=== PATIENT | male | born 1945 | race Caucasian/White ===

== ENCOUNTER → 2017-04-05 | Outpatient (CLI) | payer OTHER ==
[~2017-04-05] MED LIST: ALLOPURINOL 10100 M1 PO; AZOR 10-20 MG1 EACH PO; BP MED; CELEBREX 200 M200 MG PO; CENTRUM COMPLE1 EACH PO; CENTRUM SILVER1 EAC2 PO; COLCRYS0.6 MG PO; DEPO-TESTO100 MG/1 M IM; FISH OIL 1,001000 M2 PO; MEDROLDOSEPACK PO; MOBIC15 MG PO; PERCOCET 5-3251 EACH PO; VITAMIN D1000 UNI1 PO
== END ==
LOC: CAT 09:37 → EDSTATUS 11:57 → CAT 12:01
DX: J01.00 Acute maxillary sinusitis, unspecified (principal); J02.9 Acute pharyngitis, unspecified

== ENCOUNTER → 2017-09-18 | Outpatient (CLI) | payer OTHER ==
[~2017-09-18] MED LIST changes: +ACYCLOVIR 400400 MG PO; +ARIMIDEX PO; +DHEA50 M1 PO; +DHEA50 MG PO; +DICLOFENAC SOD50 M1 PO; +HYDROCODON-ACE1 EAC8 PO; +HYDROCODONE-AP1 EAC6 PO; +IBUPROFEN 800800 M1 PO; +PROBIOTIC1 EAC1 PO; +SYNTHROID50 MCG PO; +VALIUM5 MG PO; +VALSARTAN160 MG PO; +WELLBUTRIN 100100 MG PO; +ZANAFLEX4 MG PO
== END ==
LOC: ULTRA 09-14 10:50 → EDSTATUS 09-14 10:52 → ULTRA 09:59
DX: E04.2 Nontoxic multinodular goiter (principal); Z87.891 Personal history of nicotine dependence

== ENCOUNTER → 2017-12-04 | Outpatient (CLI) | payer OTHER ==
[~2017-12-04] VITALS: Ht 180.3 cm; Wt 111.1 kg
[~2017-12-04] MED LIST changes: -DHEA50 MG PO; -DICLOFENAC SOD50 M1 PO; -HYDROCODONE-AP1 EAC6 PO; -ZANAFLEX4 MG PO
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
[2017-12-04 12:36] VITALS: BP 144/85
== END ==
LOC: PAIN 07:16
DX: M50.10 Cervical disc disorder with radiculopathy, unspecified cervical region (principal); I10 Essential (primary) hypertension; M19.90 Unspecified osteoarthritis, unspecified site; E03.9 Hypothyroidism, unspecified; M10.9 Gout, unspecified

== ENCOUNTER → 2017-12-31 | Outpatient (CLI) | payer OTHER ==
[~2017-12-31] MED LIST changes: +DHEA50 MG PO
[2017-12-31 11:20] VITALS: BP 142/78
[2017-12-31 12:00] VITALS: BP 144/75
== END ==
LOC: OPONC 00:49
DX: D58.2 Other hemoglobinopathies (principal)
CPT/HCPCS: 95100

== ENCOUNTER → 2018-01-15 | Outpatient (CLI) | payer OTHER ==
[~2018-01-15] VITALS: Ht 180.3 cm; Wt 114.8 kg
[~2018-01-15] MED LIST changes: +DICLOFENAC SOD50 M1 PO; +HYDROCODONE-AP1 EAC6 PO
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
[2018-01-15 09:05] VITALS: BP 141/80
== END ==
LOC: PAIN 06:13
DX: M47.27 Other spondylosis with radiculopathy, lumbosacral region (principal); Z88.2 Allergy status to sulfonamides

== ENCOUNTER → 2018-02-06 | Outpatient (CLI) | payer OTHER ==
[~2018-02-06] VITALS: Ht 180.3 cm; Wt 112.5 kg
[~2018-02-06] MED LIST changes: +ZANAFLEX4 MG PO
--- NOTE | ~2018-02-06 | HPC ---
[facility] [address] [place] [address] PAIN MANAGEMENT CONSULTATION Name: MYLES STRATTON Room #: [facility] [id number] Admission: 02/06/18 Attend Phys: Jung Cardoza DO Discharge: Date of : 47 Report #: [id number] THIS REPORT FOR: //name// CC: Jung Fletcher MD DATE OF SERVICE: 02/06/2018 REFERRING PHYSICIAN: Wu Fletcher MD CHIEF COMPLAINT: Low back pain, right lower extremity pain with paresthesias. HISTORY OF PRESENT ILLNESS: As you know, the patient is a 72-year-old male who returns today in followup visit with right low back pain, right lower extremity pain with paresthesias. The patient states pain began spontaneously after kneeling down at the bedside last while on a cruise. The patient states he felt instantaneous pain radiating down the right leg and weakness with inability to dorsiflex his right foot. He states that his pain is a level of 10/10. He sought evaluation and was subsequently referred to our clinic to discuss treatment options. The patient's MRI from 06/22/2017, showed severe spinal stenosis at the L2-L3 level with a central paracentral disk change causing central canal stenosis that reportedly was advised surgical options would be necessary. The patient apparently improved spontaneously and was doing well throughout July, August, September, October and November, he began to experience some sensation in December, but was not intolerable, pain became intolerable during this recent cruise and now is experiencing right-sided pain that is radicular in origin. He is referred back to our clinic to discuss options for treatment. ALLERGIES: SULFA. CURRENT MEDICATIONS: Tizanidine 4 mg 3 times a day p.r.n., hydrocodone 5/325 one tab every 6 hours p.r.n. for pain, diclofenac sodium 50 mg once a day, lactobacillus 1 tab per day, DHEA 50 mg once a day, cholecalciferol 1000 per day, levothyroxine 50 mcg per day, valsartan 160 mg per day, multivitamin 1 tab per day, allopurinol 100 mg once a day, and testosterone 200 mg intramuscular weekly. SOCIAL HISTORY: The patient denies tobacco, IV or illicit drug use, admits to 2 alcohol beverages per week. He is retired, retired years ago. He is accompanied by his who is present in room today. IMAGING: No new imaging available. PQRS: The patient has osteoarthritis, no rheumatoid [place] [address] PAIN MANAGEMENT CONSULTATION Name: MYLES STRATTON Room #: REG [facility]#: [id number] Admission: 02/06/18 Attend Phys: Jung Cardoza DO Discharge: Date of : 47 Report #: [id number] pain level of 10/10. He is not a fall risk, has not had a fall in the last 3 months. He is not on blood thinners. He is treated for hypertension. He is not on chronic opioids. He has a low risk of opioid abuse. His functional assessment tool is 70/70, complete interference of daily activities secondary to pain. PHYSICAL EXAMINATION: VITAL SIGNS: Blood pressure 131/68, pulse 85, respiratory rate 16 and unlabored, the patient is 93% on room air, height 5 feet 11 inches tall, weight 248 pounds, BMI calculated 34.6. GENERAL: Well-developed, well-nourished, well-hydrated, exogenously obese 72-year-old male, appearing his stated age, placing current pain score 10/10. HEENT: He is normocephalic and atraumatic. Pupils are equal, round, reactive to light. Extraocular muscles are intact. Sclerae are nonicteric without injection. NEUROLOGIC: Cranial nerves 2-12 are grossly intact. Speech fluent. LUNGS: Clear, no wheeze, rhonchi or rales. CARDIOVASCULAR: Regular. No appreciable gallop or rub. ABDOMEN: Soft, obese, nontender. EXTREMITIES: Show no clubbing, no cyanosis. There is 1+ nonpitting edema in right lower extremity when compared to left. MUSCULOSKELETAL: Seated straight leg raising positive right, supine straight leg raising positive right. Sundar's test negative. Modified Gaenslen's positive for axial low back pain. Gait is extremely antalgic favoring right lower extremity over left. Weightbearing on right leg causes intensification of pain of greater than 10/10. There is noted muscle weakness with hip flexion on the right when compared to left, dorsiflexion is no greater than 1/4, plantar flexion is 2+/4. There are equal and symmetrical patellar reflexes, decreased Achilles reflex on the right when compared to left. Muscle bulk and tone appears equal and symmetrical in lower extremities bilaterally. ASSESSMENT: 1. Lumbar radiculopathy. 2. Severe spinal stenosis of lumbar spine. 3. Displacement of lumbar intervertebral disk with radiculopathy. 4. Lumbosacral spondylosis with radiculopathy. PLAN: 1. The patient has returned today in followup visit with acute onset of low back pain, right lower extremity pain with numbness and tingling radiating down the leg. This in and of itself is fairly concerning, though the patient is now showing difficulty with hip flexion on the right as well as dorsiflexion of the right foot versus the left, I am very concerned about significant nerve root impingement. The findings on MRI in June 2017, precipitated a surgical evaluation where they recommended fusion and decompression. The patient's pain did subsequently improve and so he did not have to undergo procedure at that [facility] [address] [place] [address] PAIN MANAGEMENT CONSULTATION Name: CHAYITOMYLES Kun Room #: REG [facility]ENTERVeronica.#: [id number] Admission: 02/06/18 Attend Phys: Jung Cardoza DO Discharge: Date of : 46 Report #: [id number] time. I am concerned that this symptom is either related directly to this finding or progression of the findings from the June timeframe. The patient is unable to bear weight, he is unable to walk, according to his he was screaming in pain and crying over the last 4 days due to ongoing pain issues and he has been relatively disabled. The concern I have is in regards to the weakness of the muscles of the right lower extremity and thus I have recommended further more aggressive evaluation. I have contacted the emergency department at [facility], discussed the case with the emergency physician and have recommended the patient be admitted through the emergency department and have an evaluation from neurosurgery. The patient saw Dr. Brandon Saini at [facility] in June and I believe a reevaluation of the patient's case is necessary. I do feel that further imaging either in the form of CT or MRI will be necessary, the patient and I discussed possibly doing this as an outpatient, but he indicated he would not be able to lay still in an MRI system or even a CT examination system without significant sedation. We recommend more aggressive evaluation and possible sedation through the [facility] system. I have discussed the case with the ER physician over at [facility] and he is willing to see the patient acutely and begin the workup. 2. I have taken the liberty of contacting Dr. Brandon Saini's nurse practitioner in regards to the patient's case to give them an idea of why we have referred the patient over to their services at [facility], they have yet to contact our clinic, but I will discuss with the neurosurgery team, the findings and physical exam and our concerns about progressively worsening spinal stenosis. We will be available to talk to them as quickly as possible. 3. We did discuss the possibility of starting medications on the patient and providing an epidural injection here at the clinic as well as beginning workup through MRI. Given the findings and physical exam, I do not feel that outpatient treatment will be successful. I believe further evaluation through the hospital system is more appropriate. The patient was amenable and did agree with the plan of care. <ELECTRONICALLY SIGNED> By: Jung Cardoza DO 02/12/18 0817 [id number] Jung Cardoza DO /nt
[2018-02-06 08:09] VITALS: BP 131/68
== END ==
LOC: PAIN 06:50
DX: M47.27 Other spondylosis with radiculopathy, lumbosacral region (principal); Z88.2 Allergy status to sulfonamides

== ENCOUNTER → 2018-07-03 | Outpatient (CLI) | payer OTHER | LOC: MRI 11:05 | DX: M47.896 Other spondylosis, lumbar region (principal); T14.8XXA Other injury of unspecified body region, initial encounter; X58.XXXA Exposure to other specified factors, initial encounter; Y93.89 Activity, other specified; Y92.89 Other specified places as the place of occurrence of the external cause; Y99.8 Other external cause status ==

== ENCOUNTER → 2018-07-04 | Outpatient (CLI) | payer OTHER | LOC: MRI 10:27 | DX: M47.896 Other spondylosis, lumbar region (principal); M48.061 Spinal stenosis, lumbar region without neurogenic claudication ==

== ENCOUNTER → 2019-06-24 | Outpatient (CLI) | payer OTHER | LOC: ULTRA 15:02 | DX: E04.2 Nontoxic multinodular goiter (principal) ==

== ENCOUNTER → 2019-07-15 | Outpatient (CLI) | payer OTHER | LOC: ULTRA 13:31 | DX: I73.9 Peripheral vascular disease, unspecified (principal); R20.9 Unspecified disturbances of skin sensation ==

== ENCOUNTER → 2020-03-03 | Outpatient (CLI) | payer OTHER ==
[~2020-03-03] VITALS: Ht 180.3 cm; Wt 123.5 kg
[~2020-03-03] MED LIST changes: +AVAPRO 150 MG150 MG PO; +CINNAMON500 MG PO; +FISH OIL 1,0001 EAC9 PO
--- NOTE | ~2020-03-03 | HPC ---
[facility] [place] [address] PAIN MANAGEMENT CONSULTATION Name: MYLES STRATTON Room #: REG [facility]#: [id number] Admission: 03/03/20 Attend Phys: Jung Cardoza DO Discharge: Date of : 46 Report #: [id number] THIS REPORT FOR: cc: Wu Fletcher MD, Neal A. MD Johnson, James E. DO ~ CC: Jung Fletcher MD DATE OF SERVICE: 03/03/2020 REFERRING PHYSICIAN: Wu Fletcher MD CHIEF COMPLAINT: Low back pain, right buttock and posterolateral thigh pain. HISTORY OF PRESENT ILLNESS: As you know, the patient is a 74-year-old male returning in followup visit today with recurrent low back pain, right lower extremity pain with paresthesias. As you are aware, the patient has undergone a fusion at the L2-L3 level with resolution of his lumbar radicular symptoms initially. Unfortunately, his symptoms returned without inciting injury or trauma. He states that he notes most of his symptoms are exacerbated with decreased activity. His pain does improve with riding a recumbent bike. He initially began to experience pain in the posterolateral thigh and buttock area and he was evaluated for possible bursitis. He has undergone an intrabursal injection with some improvement in symptoms. He continued to experience intermittent pain that then radiated from the back to the buttock and down the posterolateral thigh and the patient was further imaged. He was advised to follow up with our clinic to review the MRI findings and discuss treatment options. He indicates that he has not had results of this provided to him. The patient reports no new injury or trauma that may have led to symptom development. He is fairly active, riding a recumbent bike on a daily basis. ALLERGIES: SULFA. CURRENT MEDICATIONS: Cinnamon Bark 500 mg once a day, omega-3 fish oil 1 tab per day, Irbesartan 150 mg once a day, lactobacillus 1 tab per day, levothyroxine 50 mcg per day, allopurinol 100 mg once a day, testosterone intramuscular weekly. SOCIAL HISTORY: The patient denies tobacco, IV or illicit drug use. Admits to 2 alcohol beverages per week. He is retired, retired years ago. He is unaccompanied at today's visit. IMAGING: MRI of the lumbar spine obtained on 02/20/2020 shows posterior instrumentation at L2-L3 with decrease in the fluid collection from previous [facility] [address] [place] [address] PAIN MANAGEMENT CONSULTATION Name: MYLES STRATTON Room #: REG [facility]#: [id number] Admission: 03/03/20 Attend Phys: Jung Cardoza DO Discharge: Date of : 47 Report #: [id number] imaging. There is an unchanged grade 1 anterolisthesis of L4 on L5, grade 1 retrolisthesis at L3-L4 with a wedge deformity at L2. There does appear to be a retrolisthesis at L3-L4 with a large right paracentral disk protrusion with caudal migration. Extruded disk material measures 0.9 x 1.3 x 2.5 cm marked facet arthropathy, moderate central canal stenosis. There is extruded disk mass effect upon the descending right L4 nerve root in the subarticular zone and lateral recess. PHYSICAL EXAMINATION: VITAL SIGNS: Blood pressure 156/89, pulse 91, respiratory rate 18 and unlabored. The patient is 91% on room air. Height 5 feet 11 inches tall, weight 272.2 pounds, BMI calculated 38.0. GENERAL: Well-developed, well-nourished, well-hydrated exogenously obese 74-year-old male. He appears stated age, placing current pain score at 0/10. HEENT: Normocephalic, atraumatic. Pupils equal, round and reactive. NEUROLOGIC: Speech is fluent. The patient deemed a good historian. LUNGS: Clear, no wheeze, rhonchi or rales. CARDIOVASCULAR: Regular. EXTREMITIES: Show no clubbing, no cyanosis, no edema. MUSCULOSKELETAL: The patient has some palpatory tenderness over the paraspinal musculature of lower lumbar spine right side specifically. There are no changes in skin color, texture over the area. There are well-healed surgical scars from previous fusion. Seated straight leg raising is negative. Supine straight leg raising is positive on the right. Sundar's test is negative. There is some palpatory tenderness over the greater trochanter consistent with right greater trochanteric bursitis. Ankle clonus is negative. Babinski is negative. Intact to light touch from L1 through S2 dermatomes. ASSESSMENT: 1. Symptomatic lumbar radiculopathy. 2. Lateral recess of the lumbar spine. 3. Central canal stenosis of lumbar spine. 4. Displacement of lumbar intervertebral disk with radiculopathy. 5. Facet arthropathy of the lumbar spine. 6. Right greater trochanteric bursitis. 7. Chronic intractable pain. PLAN: 1. Based on today's physical exam and the history, the patient provides, the description, the patient uses in regards to pain as well as the location of symptoms, likely source of the patient's pain is a lumbar radiculopathy. We have reviewed with the patient the MRI, he brought with us dated 02/20/2020. We spent over 18 minutes of time reviewing the MRI, specifically the area of the L3-L4 level consistent with the patient's pain distribution showing significant mass effect upon the right L4 nerve root. We discussed with the patient the options for treatment based on this MRI and the findings on physical exam today. [address] [address] PAIN MANAGEMENT CONSULTATION Name: CHAYITOMYLES L Room #: REG [facility]ele[facility]#: [id number] Admission: 03/03/20 Attend Phys: Jung Cardoza DO Discharge: Date of : 47 Report #: [id number] Following was discussed with the patient. We discussed physical therapy, stretching exercises, core strengthening as a treatment option. We discussed medication management with neuropathic pain medications, specifically to address neuropathic symptoms such as nortriptyline, amitriptyline, Cymbalta, Lyrica, and gabapentin. We discussed lumbar epidural injection under fluoroscopic guidance to directly address the inflammatory process that may be present at the L3-L4 level. We also discussed a spinal cord stimulator and ultimately surgical decompression. After reviewing the risks and benefits of all proposed treatment options, the patient chose to consider surgical options. 2. The patient has a Neurosurgery Group in [place], [place]. He wishes to utilize to address his surgical issues. He has sent all imaging to their facility and are awaiting the response to the findings at the L3-L4 level. He will be following up with them in regards to surgical options. I do feel that decompression of the area will improve the patient's current symptoms and improve his long-term outcome. He will follow up with his neurosurgery group as quickly as possible. 3. In regards to the patient's greater trochanteric bursitis pain, we would recommend that if his symptoms do return, which are present, they are not problematic, we would be more than willing to have the patient undergo a bursa injection under fluoroscopic guidance. He has had good benefit with previous steroid injections in the past and would be available to see him back to trial this injection option. He is also considering possible stem cell injections in [facility]. I have read the literature that does indicate that there is some efficacy for these to be utilized. The patient can look into this option. We will be certainly available to see him back to trial a bursa injection if he wishes to do so. 4. The patient was advised if he does have recurrence of pain to a level of intolerable, he can certainly return to trial an epidural injection to address lumbar radicular symptoms prior to any surgical consultation. We will make ourselves available to the patient for that if he wishes to do so. The patient is agreeable with the plan. 5. We will see the patient back in followup visit on an as needed basis. The patient is informed about the findings of his MRI after our discussion today. He will contact our clinic if he wishes to discuss further treatment options or to address interventional treatment. By: 1453 12 Jung Cardoza DO /andressa
--- NOTE | 2020-03-03 13:45 | NUR ---
Pain Clinic Assessment: 1. History of Osteoarthritis: BACK RIGHT HIP History of Rheumatoid Arthritis: Not Applicable 2. Height: ft. in. cm. Weight: lb. oz. kg. Patient's BMI: 3. Vital Signs: BP: Pulse: Resp: Temp: 02 Sat: ECG Mon: 4. Pain Intensity: 0 5. Fall Risk: Dizziness: Needs help standing or walking: Fallen in the last 3 months: Fall risk comments: 6. Patient on Blood Thinner: None 7. History of Hypertension: Y 8. Opioid Therapy greater than 6 weeks: N Opiate Contract Signed: 9. Risk Assessment Tool Provided: LOW RISK 09/12 10. Functional Assessment Tool: 11. Recreational Drug Use: Never Drug Type: Tobacco Use: Never Smoker Tobacco Type: Amount or Packs/day: How Many Years: Alcohol Use: Yes Frequency: Weekly Quant: 1-2
[2020-03-03 13:46] VITALS: BP 156/89
--- NOTE | 2020-03-03 13:47 | NUR ---
Pain Clinic Assessment: 1. History of Osteoarthritis: BACK RIGHT HIP History of Rheumatoid Arthritis: Not Applicable 2. Height: 5 ft. 11 in. 180.3 cm. Weight: 272.2 lb. oz. 123.469 kg. Patient's BMI: 38.0 3. Vital Signs: BP: 156/89 Pulse: 91 Resp: 18 Temp: 02 Sat: 91 ECG Mon: 4. Pain Intensity: 0 5. Fall Risk: Dizziness: N Needs help standing or walking: N Fallen in the last 3 months: N Fall risk comments: 6. Patient on Blood Thinner: None 7. History of Hypertension: Y 8. Opioid Therapy greater than 6 weeks: N Opiate Contract Signed: 9. Risk Assessment Tool Provided: LOW RISK 09/12 10. Functional Assessment Tool: 11. Recreational Drug Use: Never Drug Type: Tobacco Use: Never Smoker Tobacco Type: Amount or Packs/day: How Many Years: Alcohol Use: Yes Frequency: Weekly Quant: 1-2
== END ==
LOC: PAIN 06:47
PROVIDERS: ATTEND Anesthesiology Pain Medicine
DX: M51.16 Intervertebral disc disorders with radiculopathy, lumbar region (principal); M48.061 Spinal stenosis, lumbar region without neurogenic claudication; M47.26 Other spondylosis with radiculopathy, lumbar region; M71.551 Other bursitis, not elsewhere classified, right hip; G89.29 Other chronic pain; Z87.39 Personal history of other diseases of the musculoskeletal system and connective tissue; Z88.2 Allergy status to sulfonamides; Z79.899 Other long term (current) drug therapy

== ENCOUNTER → 2020-04-02 | Outpatient (CLI) | payer OTHER ==
[2020-04-02 12:50] VITALS: BP 138/71
[2020-04-02 13:18] VITALS: BP 143/69
[2020-04-02 14:26] LABS: HEMATOCRIT 55.3 % (42.0-52.0); HEMOGLOBIN 18.8 gm/dL (14.0-18.0)
--- NOTE | 2020-04-02 15:56 | NUR ---
IN FOR THERAPEUTIC PHLEBOTOMY FOR ELEVATED HGB OF 18.9. PATIENT IS PREPARING FOR SURGERY NEXT WEEK. REMOVED 1 UNIT BLOOD. TOLERATED WELL. DRANK SOME APPLE JUICE AND OBSERVED FOR 20 MINUTES. POST BP GOOD. DISMISSED IN STABLE CONDITION.
== END ==
LOC: OPONC 08:31
PROVIDERS: ATTEND Family Medicine
DX: R71.8 Other abnormality of red blood cells (principal)
CPT/HCPCS: 95100

== ENCOUNTER → 2020-10-26 | Outpatient (CLI) | payer OTHER | LOC: ULTRA 08:57 | PROVIDERS: ATTEND Family Medicine | DX: I82.412 Acute embolism and thrombosis of left femoral vein (principal); I82.432 Acute embolism and thrombosis of left popliteal vein; M79.89 Other specified soft tissue disorders; R60.0 Localized edema ==

== ENCOUNTER → 2020-11-17 | Outpatient (CLI) | payer OTHER | LOC: SJCVCIMAG 11-16 14:24 | PROVIDERS: ATTEND Family Medicine | DX: I73.9 Peripheral vascular disease, unspecified (principal); M79.661 Pain in right lower leg; M79.662 Pain in left lower leg ==

== ENCOUNTER → 2021-01-13 | Outpatient (CLI) | payer OTHER | LOC: SJCVCIMAG 10:43 | PROVIDERS: ATTEND Nuclear Medicine Nuclear Cardiology | DX: I82.412 Acute embolism and thrombosis of left femoral vein (principal); I82.432 Acute embolism and thrombosis of left popliteal vein; I82.442 Acute embolism and thrombosis of left tibial vein; Z79.899 Other long term (current) drug therapy; Z87.891 Personal history of nicotine dependence ==

== ENCOUNTER → 2021-02-03 | Outpatient (CLI) | payer OTHER | LOC: SJCVC 14:20 | PROVIDERS: ATTEND Internal Medicine Cardiovascular Disease | DX: I47.1 Supraventricular tachycardia (principal); R93.1 Abnormal findings on diagnostic imaging of heart and coronary circulation; I10 Essential (primary) hypertension; Z88.2 Allergy status to sulfonamides; Z79.899 Other long term (current) drug therapy; Z87.891 Personal history of nicotine dependence; Z82.49 Family history of ischemic heart disease and other diseases of the circulatory system ==

== ENCOUNTER → 2021-02-08 | Outpatient (CLI) | payer OTHER | LOC: SJCVCIMAG 08:49 | PROVIDERS: ATTEND Internal Medicine Cardiovascular Disease | DX: I51.7 Cardiomegaly (principal); I97.89 Other postprocedural complications and disorders of the circulatory system, not elsewhere classified; I47.1 Supraventricular tachycardia ==

== ENCOUNTER 2021-02-16 12:57 | Emergency (ER) | payer OTHER ==
[~2021-02-16] VITALS: Ht 180.3 cm; Wt 122.5 kg
--- NOTE | ~2021-02-16 | EMS ---
[facility] [address] [place] [address] EMS Patient Care Report Name: MYLES STRATTON Room #: DEP CLAUDIA Velez#: [id number] Admission: 02/16/21 Attend Phys: Discharge: 02/16/21 Date of : 47 Report #: [id number] THIS REPORT FOR: //name// Report Transmitted: 02/16/2021 19:14 EMS Care Summary [facility] MED-ACT Incident [id number] @ 02/16/2021 12:05 Incident Location [address] [place] [address] Patient MYLES STRATTON Male, 75 Years 1945 Patient Address [address] [place] [address] Patient History Hypertension (HTN),Back Surgery,Supraventricular Tachycardia (SVT), Patient Allergies Sulfa, Patient Medications Irbesartan, Allopurinol, Xarelto, Levothyroxine, Chief Complaint Palpitations Disposition Transported No Lights/[place] Reason Heart Problems/AICD Transported To [facility] Narrative INITIAL: Patient found sitting in a chair, alert. HPI: Patient reported that he rode his bike this morning, and stopped exercising at about 10:30 AM. At about 11:15, he began having palpitations and [facility] [address] [place] [address] EMS Patient Care Report Name: MYLES STRATTON Room #: DEP Rosie#: [id number] Admission: 02/16/21 Attend Phys: Discharge: 02/16/21 Date of : 47 Report #: [id number] his Apple Watch alerted him to an irregular heartbeat. He attempted vagal maneuvers about 5 times, without success. He has a history of SVT. He usually goes into SVT about once a year. He denied any chest pain, difficulty breathing, or other pain. PLAN: Vitals, history, 12 lead, assessment. Assisted patient to cot and moved to back of ambulance. Repeat 12 leads, IV. Transported non-emergency to [facility]. Patient remained stable during transport. Transferred patient to ER nurse in room 8. Initial Vitals @12:42P: 148,R: 16,BP: 118/61,Pain: 0/10,GCS: 15,SpO2: 96,Revised Trauma: 12,GA Suspected: false @12:29P: 149,R: 18,BP: 128/77,Pain: 0/10,GCS: 15,SpO2: 96,Revised Trauma: 12,GA Suspected: false @12:32P: 149,R: 18,BP: 120/80,Pain: 0/10,GCS: 15,SpO2: 96,Revised Trauma: 12,GA Suspected: false @12:18P: 151,R: 18,BP: 144/97,Pain: 0/10,GCS: 15,Temp: 98F,SpO2: 96,Revised Trauma: 12,GA Suspected: false Assessments @12:16MENTAL:Person Oriented,Time Oriented,Place Oriented,Event Oriented,SKIN:HEENT:LUNG SOUNDS:ABDOMEN:PELVIS//GI:EXTREMITIES:PULSE:Radial: 2+ Normal,NEURO: Impression Cardiac arrhythmia/dysrhythmia Procedures @12:30Saline Lock cc (18 ga) Site: Antecubital-LeftResponse: UnchangedFailed@12:33Saline Lock 5cc (18 ga) Site: Upper Arm-RightResponse: UnchangedSucceeded@12:1812-Lead ECG@12:3512-Lead ECG@12:4212-Lead ECG Timeline 12:04,Call Received 12:04,Psap Call 12:05,Dispatched 12:07,En Route 12:14,On Scene 12:15,At Patient 12:18,12-Lead ECG, 12:18,BP: 144/97 M,PULSE: 151,RR: 18 R,SPO2: 96 Ox,ETCO2: ,BG: ,PAIN: 0,GCS: 15, 12:29,BP: 128/77 M,PULSE: 149,RR: 18 R,SPO2: 96 Ox,ETCO2: ,BG: ,PAIN: 0,GCS: 15, 12:30,Saline Lock cc 18 ga Site: Antecubital-Left,Response: UnchangedFailed, [facility] [address] [place] [address] EMS Patient Care Report Name: MYLES STRATTON Kun Room #: [facility] CLAUDIA Velez#: [id number] Admission: 02/16/21 Attend Phys: Discharge: 02/16/21 Date of : 47 Report #: [id number] 12:32,BP: 120/80 M,PULSE: 149,RR: 18 R,SPO2: 96 Ox,ETCO2: ,BG: ,PAIN: 0,GCS: 15, 12:33,Depart Scene 12:33,Saline Lock 5cc 18 ga Site: Upper Arm-Right,Response: UnchangedSucceeded, 12:35,12-Lead ECG, 12:42,12-Lead ECG, 12:42,BP: 118/61 M,PULSE: 148,RR: 16 R,SPO2: 96 Ox,ETCO2: ,BG: ,PAIN: 0,GCS: 15, 12:56,At Destination 13:13,Call Closed Disclaimer v1.1 Copyright 2020 [employer] This EMS Care Summary contains data elements from the applicable legal record (which may be displayed differently). It is designed to provide pertinent information for the following purposes: continuity of care, clinical quality, and state data reporting. The complete legal record is available to ED staff and administrators of the receiving hospital in [employer] Patient Tracker. All data is provided "as is."
[2021-02-16] MEDS ORDERED: XARELTO20 MG PO (13:09)
[2021-02-16 13:36] LABS: ABSOLUTE NEUTROPHILS 3.1 thou/uL (1.4-8.2); BASOPHILS 0.8 % (0.0-2.0); EOSINOPHILS 1.9 % (0.0-3.0); HEMOGLOBIN 14.9 gm/dL (14.0-18.0); LYMPHOCYTES 30.3 % (24.0-44.0); MCH 31.5 pg (26.0-34.0); MCHC 33.9 g/dL (28.0-37.0); MONOCYTES 11.2 % (1.0-8.0); PLATELET COUNT 177 thou/uL (150-400); POLYS 55.8 % (36.0-66.0); RBC 4.74 mil/uL (4.50-6.00); RDW 14.5 % (10.5-14.5); WBC 5.5 thou/uL (4.0-11.0)
[2021-02-16 13:42] LABS: ANION GAP 8 mmol/L (7-16); BUN 17 mg/dL (7-18); CALCIUM 9.3 mg/dL (8.5-10.1); CHLORIDE 107 mmol/L (98-107); CO2 27 mmol/L (21-32); CREATININE 0.9 mg/dL (0.7-1.3); GLUCOSE 95 mg/dL (74-106); POTASSIUM 3.8 mmol/L (3.5-5.1); SODIUM 142 mmol/L (136-145)
[2021-02-16 13:50] LABS: TROPONIN-I <0.06 ng/mL (<0.06)
[2021-02-16 15:29] VITALS: BP 137/71
--- NOTE | 2021-02-16 15:33 | EKG ---
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 SAMPSON : 1945 Requested By: Rex Treviño Order Number: [id number] MD: Roberto Tirado Measurements Intervals [place] Rate: 89 P: -3 CT: 178 QRS: -27 QRSD: 87 T: 22 QT: 362 QTc: 441 Interpretive Statements Sinus rhythm Ventricular premature complex Left ventricular hypertrophy Inferior infarct, old Compared to ECG 02/16/2021 14:07:46 Ventricular premature complex(es) now present Myocardial infarct finding still present Electronically Signed On 02-16-2021 15:33:42 CDT by Roberto Tirado [email or web address] <ELECTRONICALLY SIGNED> By: Roberto Tirado MD, [facility] 02/16/21 1533 1408 1408 Roberto Tirado MD, [facility] /EPI
--- NOTE | 2021-02-16 15:33 | EKG ---
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 SAMPSON : 1945 Requested By: Geovany Connell Order Number: [id number] MD: Roberto Tirado Measurements Intervals [place] Rate: 84 P: -8 UT: 179 QRS: -29 QRSD: 84 T: 24 QT: 360 QTc: 426 Interpretive Statements Sinus rhythm Left ventricular hypertrophy Inferior infarct, old Compared to ECG 10/25/2009 07:53:34 Left ventricular hypertrophy now present Myocardial infarct finding now present Electronically Signed On 02-16-2021 15:33:38 CDT by Roberto Tirado [email or web address] <ELECTRONICALLY SIGNED> By: Roberto Tirado MD, [facility] 02/16/21 1533 1407 06 Roberto Tirado MD, [facility] /EPI
--- NOTE | 2021-02-18 07:05 | EKG ---
[place] [address] [address] [facility] [facility] [address] ELECTROCARDIOGRAM REPORT Name: MYLES STRATTON [id number] Admission: 02/16/21 Attend Phys: Discharge: 02/16/21 Date of : 47 Report #: [id number] 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1945 Requested By: Rex Treviño Order Number: [id number] MD: Roberto Tirado Measurements Intervals [place] Rate: 148 P: 185 AR: 82 QRS: -21 QRSD: 81 T: 11 QT: 281 QTc: 442 Interpretive Statements Supraventricular tachycardia LVH by voltage Inferior infarct, old Lateral leads are also involved Compared to ECG 10/25/2009 07:53:34 Left ventricular hypertrophy now present Myocardial infarct finding now present Sinus rhythm no longer present Electronically Signed On 02-18-2021 7:05:13 CDT by Roberto Tirado [email or web address] <ELECTRONICALLY SIGNED> By: Roberto Tirado MD, [facility] 02/18/21 0705 1306 [id number] Roberto Tirado MD, [facility] /EPI
== END 2021-02-16 15:29 | disposition home or self-care (01) ==
LOC: ER 12:57
PROVIDERS: Nurse Practitioner
DX: I48.3 Typical atrial flutter (principal); I10 Essential (primary) hypertension; G89.29 Other chronic pain; Z79.899 Other long term (current) drug therapy; Z88.2 Allergy status to sulfonamides

== ENCOUNTER → 2021-03-10 | Outpatient (CLI) | payer OTHER ==
[~2021-03-10] VITALS: Ht 180.3 cm; Wt 122.7 kg
[~2021-03-10] MED LIST changes: +CANDICIDAL CAP1 EACH PO; +DILTIAZEM 24HR120 M1 PO; +XARELTO20 MG PO
--- NOTE | ~2021-03-10 | P ---
[facility] [place] [address] PROCEDURE REPORT Name: MYLES STRATTON Room #: [facility]#: [id number] Admission: 03/10/21 Attend Phys: Jake Jerome MD Discharge: Date of : 47 Report #: [id number] THIS REPORT FOR: cc: Wu Fletcher MD, Neal A. MD Couchonnal, Luis F. MD ~ DOC #: [id number] Jake Jerome MD DATE OF SERVICE: 03/10/2021 SVT ABLATION PREOPERATIVE DIAGNOSIS: Supraventricular tachycardia. POSTOPERATIVE DIAGNOSIS: Typical atrioventricular asaf reentrant tachycardia. PROCEDURES PERFORMED: 1. SVT ablation -- CPT code 44861. 2. EP with left atrial pacing and recordings, CPT code 18535. 3. Programmed stimulation pacing after IV drug infusion, CPT code 53160. 4. 3D mapping, CPT code 25042. HISTORY: The patient is a 75-year-old with recurrent supraventricular tachycardia despite medication therapy. He has had a recent DVT in the left vein. DESCRIPTION OF PROCEDURE: The patient was brought to the EP laboratory in fasting and sedated state, prepped and draped in a sterile fashion. He had undergone informed consent. We discussed the details of the procedure including the risks, which include but not limited to bleeding, vascular damage, stroke, NM, cardiac perforation as well as damage to the nuiqsut conduction system requiring permanent pacemaker. He understood these risks and is willing to proceed. As such, I obtained, all four access to the right femoral vein as he has had a recent DVT in the left femoral vein. I placed 8, 2, 6 and a 7-[place] Ze[place] short sheath using the modified Seldinger technique. Under fluoroscopy, I placed 3 quadripolar catheters at the HRA, His and RV positions respectively and a decapolar catheter into the coronary sinus for left atrial pacing and recording. At baseline, the patient was in sinus rhythm, sinus cycle length of 860 milliseconds, VA interval 180 milliseconds, QRS duration 80 milliseconds, QT interval 390 milliseconds, AH interval 76 milliseconds, HV interval 45 milliseconds. Atrial burst pacing was performed and AV block was noted at 360 milliseconds. Single atrial extrastimuli were delivered and there was AH jump at 300 milliseconds to a [address] cycle length consistent with slow pathway physiology. Atrial ERP was noted at 250 milliseconds at a [address] cycle length. Ventricular pacing was performed and VA block was noted at 390 milliseconds and ventricular ERP was noted at 220 [facility] [address] [place] [address] PROCEDURE REPORT Name: MYLES STRATTON Room #: [facility]#: [id number] Admission: 03/10/21 Attend Phys: Jake Jerome MD Discharge: Date of : 47 Report #: [id number] milliseconds at a [address] cycle length, with activation that was both midline and decremental. With a single atrial extrastimuli, I demonstrated nonsustained SVT that appeared to be consistent with typical AV asaf reentrant tachycardia. Isoproterenol infusion was initiated at 1 mcg per minute and then SVT was easily inducible at a tachycardia cycle length of 350 milliseconds, septal VA time of 70 milliseconds and entrainment demonstrated a VAHV response consistent with typical AV asaf reentrant tachycardia. THREE-DIMENSIONAL MAPPING AND ABLATION: Next, a 4-mm ablation catheter was placed into the right atrium via an SR0 sheath. A 3D geometry of the atrium was created with specific emphasis of the His bundle region and the slow pathway region. Ablation was performed at 50 anguiano and 55 degrees. A total of 5 ablation lesions were delivered. Lesions 2, 3 and 4 had nice slow junctionals. There was never any compromise to the AV asaf function. POST-ABLATION TESTING: Post-ablation, the patient was started back on isoproterenol, AV block was noted at 360 milliseconds. AV asaf ERP was noted at 220 milliseconds to [address] cycle length. VA block was noted at 290 milliseconds. Aggressive atrial and ventricular pacing maneuvers were performed and there was no inducible SVT and there were no AV asaf echoes. Post-ablation, I continued testing as I turned off the isoproterenol and no arrhythmias were inducible. Post-ablation, the patient was in sinus rhythm, sinus cycle length of 680 milliseconds, VA interval 170 milliseconds, QRS 75 milliseconds, QT interval 320 milliseconds, AH interval 90 milliseconds, HV interval 42 milliseconds. As such, catheters and sheaths were pulled. Hemostasis was obtained. The patient awoke neurologically and hemodynamically intact. CONCLUSIONS: 1. Successful ablation of typical AVNRT. 2. Normal SA asaf function. 3. Normal AV asaf function. 4. Normal His-Purkinje function. 5. No other inducible arrhythmias on or off isoproterenol. Jake Jerome MD Cb/KENDRICK/ESDRAS [facility] [address] [place] [address] PROCEDURE REPORT Name: MYLES STRATTON Room #: ZEYAD Velez#: [id number] Admission: 03/10/21 Attend Phys: Jake Jerome MD Discharge: Date of : 47 Report #: [id number] By: [id number] Jake Jerome MD /nt
[2021-03-10 07:35] VITALS: BP 128/68
[2021-03-10 07:49] LABS: ABSOLUTE NEUTROPHILS 2.9 thou/uL (1.4-8.2); BASOPHILS 0.6 % (0.0-2.0); EOSINOPHILS 2.8 % (0.0-3.0); HEMATOCRIT 43.1 % (42.0-52.0); HEMOGLOBIN 14.5 gm/dL (14.0-18.0); MCH 31.7 pg (26.0-34.0); MCHC 33.7 g/dL (28.0-37.0); MCV 94.3 fL (80.0-100.0); PLATELET COUNT 165 thou/uL (150-400); POLYS 52.6 % (36.0-66.0); RBC 4.57 mil/uL (4.50-6.00); RDW 13.9 % (10.5-14.5); WBC 5.4 thou/uL (4.0-11.0)
[2021-03-10 07:52] LABS: POTASSIUM 3.9 mmol/L (3.5-5.1)
[2021-03-10 08:00] LABS: ALBUMIN 3.4 g/dL (3.4-5.0); TOTAL BILIRUBIN 0.6 mg/dL (0.2-1.0); TOTAL PROTEIN 7.2 g/dL (6.4-8.2)
[2021-03-10 08:37] LABS: APTT 26.7 Seconds (24.5-32.8); PROTIME 10.4 Seconds (9.3-11.4)
== END | disposition home or self-care (01) ==
LOC: CATH 06:19
PROVIDERS: ATTEND Internal Medicine Cardiovascular Disease
DX: I47.1 Supraventricular tachycardia (principal); I48.92 Unspecified atrial flutter; R00.2 Palpitations; I10 Essential (primary) hypertension; M19.90 Unspecified osteoarthritis, unspecified site; E07.9 Disorder of thyroid, unspecified; F32.9 Major depressive disorder, single episode, unspecified; E66.09 Other obesity due to excess calories; Z98.890 Other specified postprocedural states; Z79.899 Other long term (current) drug therapy; Z85.820 Personal history of malignant melanoma of skin; Z79.01 Long term (current) use of anticoagulants; Z86.718 Personal history of other venous thrombosis and embolism; Z88.2 Allergy status to sulfonamides
CPT/HCPCS: 62110; 62900; 70005

== ENCOUNTER → 2021-06-09 | Outpatient (CLI) | payer OTHER | LOC: SJCVC 14:00 | PROVIDERS: ATTEND Internal Medicine Cardiovascular Disease | DX: I47.1 Supraventricular tachycardia (principal); I73.9 Peripheral vascular disease, unspecified; R93.1 Abnormal findings on diagnostic imaging of heart and coronary circulation; I82.509 Chronic embolism and thrombosis of unspecified deep veins of unspecified lower extremity; Z88.2 Allergy status to sulfonamides; Z79.899 Other long term (current) drug therapy; Z72.89 Other problems related to lifestyle; Z87.891 Personal history of nicotine dependence ==

== ENCOUNTER → 2021-08-15 | Outpatient (CLI) | payer OTHER | LOC: SJCVC 11:12 | PROVIDERS: ATTEND Internal Medicine Cardiovascular Disease | DX: I47.1 Supraventricular tachycardia (principal); R93.1 Abnormal findings on diagnostic imaging of heart and coronary circulation; I10 Essential (primary) hypertension; E78.00 Pure hypercholesterolemia, unspecified; I25.10 Atherosclerotic heart disease of native coronary artery without angina pectoris; E78.5 Hyperlipidemia, unspecified; Z82.49 Family history of ischemic heart disease and other diseases of the circulatory system; F17.200 Nicotine dependence, unspecified, uncomplicated; Z72.89 Other problems related to lifestyle; Z79.899 Other long term (current) drug therapy ==

== ENCOUNTER → 2021-08-31 | Outpatient (CLI) | payer OTHER | LOC: SJCVCIMAG 09:01 | PROVIDERS: ATTEND Internal Medicine Cardiovascular Disease | DX: I25.89 Other forms of chronic ischemic heart disease (principal); I49.3 Ventricular premature depolarization; R00.0 Tachycardia, unspecified; R94.39 Abnormal result of other cardiovascular function study; R93.1 Abnormal findings on diagnostic imaging of heart and coronary circulation; I10 Essential (primary) hypertension; E78.00 Pure hypercholesterolemia, unspecified; I77.810 Thoracic aortic ectasia; E78.5 Hyperlipidemia, unspecified; Z79.899 Other long term (current) drug therapy; Z88.5 Allergy status to narcotic agent; Z88.1 Allergy status to other antibiotic agents; Z98.1 Arthrodesis status ==